=== PATIENT | female | born 1990 | race Caucasian/White ===

== ENCOUNTER 2018-12-12 10:00 | Inpatient (IN) | payer MEDICAID ==
[~2018-12-12] VITALS: Ht 157.5 cm; Wt 77.1 kg
[~2018-12-12 10:00] MED LIST: PREN-385 PO
[2018-12-19] MEDS ORDERED: LACTATED RINGERS 1,000 ML IV SCH (07:25)
[2018-12-19 07:59] LABS: BASOPHILS % (AUTO) 0.4 % (0.0-2.0); EOSINOPHILS # (AUTO) 0.1 K/uL (0-0.4); EOSINOPHILS % (AUTO) 1.1 % (0.0-4.0); HEMATOCRIT 37.9 % (36-48); HEMOGLOBIN 12.5 g/dL (12.0-16.0); MEAN CORPUSCULAR HEMOGLOBIN 25 pg (27-31); MEAN CORPUSCULAR HGB CONC 33 g/dL (33-37); MEAN CORPUSCULAR VOLUME 75.6 fL (80-94); MONOCYTES # (AUTO) 0.7 K/uL (0.8-1.0); MONOCYTES % (AUTO) 6.6 % (1.7-9.3); NEUTROPHILS # (AUTO) 6.8 K/uL (1.8-7.7); NEUTROPHILS % (AUTO) 63.9 % (42.2-75.2); PLATELET COUNT (AUTO) 308 K/uL (140-450); RED BLOOD CELL COUNT(AUTO) 5.01 MIL/uL (4.20-5.40); RED CELL DISTRIBUTION WIDTH 15.2 % (11.6-13.7); WHITE BLOOD COUNT (AUTO) 10.6 K/uL (4.8-10.8)
[2018-12-19 08:09] LABS: BILIRUBIN,URINE NEGATIVE (NEGATIVE); BLOOD, URINE TRACE-I (NEGATIVE); COLOR,URINE YELLOW (YELLOW); LEUKOCYTE ESTERASE ,URINE 1+ (NEGATIVE); NITRITE, URINE NEGATIVE (NEGATIVE); PH,URINE 7.5 (5.0-9.0); UGLUCOSE NEGATIVE (NEGATIVE)
[2018-12-19 08:36] LABS: APPEARANCE,URINE SL HAZY (CLEAR)
[2018-12-19 08:39] LABS: RBC,URINE 0-5 /HPF (0-5)
--- NOTE | 2018-12-19 09:19 | NUR ---
PATIENT HAS BEEN SCREENED AND CATEGORIZED LOW NUTRITION RISK. PATIENT WILL BE SEEN WITHIN 7 DAYS OF ADMISSION. 12/25/[address]
[2018-12-19 09:34] VITALS: BP 117/73
[2018-12-19] MEDS ORDERED: ONDANSETRON 4 MG/2 ML VIAL ONE (10:04)
[2018-12-19 10:09] LABS: ANION GAP 18.3 (8-16); CARBON DIOXIDE 20.1 mmol/L (21-32); CREATININE 0.5 mg/dL (0.6-1.3); POTASSIUM 4.4 mmol/L (3.5-5.1)
[2018-12-19 10:10] LABS: ALBUMIN 2.6 g/dL (3.4-5.0); TOTAL BILIRUBIN 0.3 mg/dL (0.0-1.0)
[2018-12-19] MEDS ORDERED: MORPHINE PRES FREE 10 MG/10 ML AMP IV ONE (10:18)
[2018-12-19] MEDS ORDERED: diphenhydrAMINE 50 MG/ML VIAL IVP PRN (10:30)
[2018-12-19] MEDS ORDERED: ONDANSETRON 4 MG/2 ML VIAL IVP PRN (10:30)
[2018-12-19] MEDS ORDERED: KETOROLAC 30 MG/ML VIAL IVP PRN (10:30)
[2018-12-19] MEDS ORDERED: NALOXONE 0.4 MG/ML VIAL IVP PRN ×2 (10:30)
[2018-12-19] MEDS ORDERED: OXYTOCIN 20 UNITS in LACTATED RINGERS 1,000 ML IV SCH (12:54)
[2018-12-19] MEDS ORDERED: MEASLES, MUMPS, AND RUBELLA 1 VIAL SQVAC PRN (12:55)
[2018-12-19] MEDS ORDERED: HYDROmorphone 1 MG/ML AMP IVP PRN ×2 (12:55)
[2018-12-19] MEDS ORDERED: ceFAZolin 1,000 MG VIAL ONE (20:32)
[2018-12-20] MEDS ORDERED: OXYTOCIN 20 UNITS/LR PREMIX 1,000 ML IV ONE (00:42)
[2018-12-20] MEDS ORDERED: ceFAZolin 1,000 MG VIAL ONE (04:51)
[2018-12-20] MEDS: KETOROLAC 30 MG/ML VIAL IVP PRN ×2 (10:00→20:14)
[2018-12-20 11:35] LABS: BASOPHILS % (AUTO) 0.4 % (0.0-2.0); EOSINOPHILS # (AUTO) 0.1 K/uL (0-0.4); EOSINOPHILS % (AUTO) 1.1 % (0.0-4.0); HEMATOCRIT 33.5 % (36-48); HEMOGLOBIN 10.9 g/dL (12.0-16.0); LYMPHOCYTES # (AUTO) 2.1 K/uL (2.5-16.5); LYMPHOCYTES % (AUTO) 16.6 % (20.5-51.1); MEAN CORPUSCULAR HEMOGLOBIN 24 pg (27-31); MEAN CORPUSCULAR HGB CONC 33 g/dL (33-37); MEAN CORPUSCULAR VOLUME 74.9 fL (80-94); MONOCYTES # (AUTO) 0.8 K/uL (0.8-1.0); MONOCYTES % (AUTO) 6.1 % (1.7-9.3); NEUTROPHILS # (AUTO) 9.6 K/uL (1.8-7.7); NEUTROPHILS % (AUTO) 75.8 % (42.2-75.2); PLATELET COUNT (AUTO) 275 K/uL (140-450); RED BLOOD CELL COUNT(AUTO) 4.48 MIL/uL (4.20-5.40); RED CELL DISTRIBUTION WIDTH 15.1 % (11.6-13.7); WHITE BLOOD COUNT (AUTO) 12.6 K/uL (4.8-10.8)
[2018-12-20] MEDS ORDERED: ACETAMINOPHEN 325 MG TAB PO PRN (22:00)
[2018-12-21] MEDS ORDERED: SODIUM PHOSPHATE 118 ML ENEM RC PRN (08:00)
[2018-12-21] MEDS ORDERED: IBUPROFEN 600 MG TAB PO PRN (08:00)
[2018-12-21] MEDS: BISACODYL 5 MG TABEC PO SCH (08:54)
[2018-12-21] MEDS: SIMETHICONE 80 MG TAB.CHEW PO SCH ×3 (08:54→17:19)
[2018-12-21] MEDS: DOCUSATE SODIUM 100 MG GELCAP PO SCH (08:55)
[2018-12-22] MEDS: SIMETHICONE 80 MG TAB.CHEW PO SCH ×3 (08:46→18:02)
[2018-12-22] MEDS: BISACODYL 5 MG TABEC PO SCH (08:46)
[2018-12-22] MEDS: DOCUSATE SODIUM 100 MG GELCAP PO SCH (08:46)
[2018-12-23] MEDS: BISACODYL 5 MG TABEC PO SCH (08:31)
[2018-12-23] MEDS: SIMETHICONE 80 MG TAB.CHEW PO SCH (08:32)
[2018-12-23] MEDS: DOCUSATE SODIUM 100 MG GELCAP PO SCH (08:32)
[2018-12-23] MEDS ORDERED: MIDAZOLAM 2 MG/2 ML VIAL ONE ×2 (11:02)
[2018-12-23] MEDS ORDERED: fentaNYL 0.05 MG/ML VIAL ONE (11:02)
[2018-12-23] MEDS ORDERED: diphenhydrAMINE 50 MG/ML VIAL ONE (11:03)
== END 2018-12-23 15:30 | disposition home or self-care (01) | DRG 540 ==
LOC: MLD 12-19 07:17 → MFCC 12-19 14:15
PROVIDERS: ADMIT Obstetrics & Gynecology; ATTEND Obstetrics & Gynecology
PROC: 0UB10ZZ Excision of Left Ovary, Open Approach (ICD-10-PCS; 2018-12-19)
PROC: 10D00Z1 Extraction of Products of Conception, Low, Open Approach (ICD-10-PCS; principal; 2018-12-19 10:00)
DX: O32.0XX0 Maternal care for unstable lie, not applicable or unspecified (principal); O24.429 Gestational diabetes mellitus in childbirth, unspecified control; N83.202 Unspecified ovarian cyst, left side; O34.211 Maternal care for low transverse scar from previous cesarean delivery; O34.83 Maternal care for other abnormalities of pelvic organs, third trimester; O69.81X0 Labor and delivery complicated by cord around neck, without compression, not applicable or unspecified; Z37.0 Single live birth; Z3A.39 39 weeks gestation of pregnancy
CPT/HCPCS: 36415; 51702; 80053; 81001; 85025; 86592; 86886; 86900; 86901; 87086; 88305; 88307; J0690; J1200; J1885; J2250; J2270; J2405; J2590; J3010; J7060; J7120

== ENCOUNTER 2018-12-12 13:56 | Observation (INO) | payer MEDICAID ==
[~2018-12-12] VITALS: Ht 157.5 cm; Wt 77.1 kg
[2018-12-12 14:40] VITALS: BP 111/76
== END 2018-12-12 17:00 | disposition home or self-care (01) ==
LOC: MLD 13:56
PROVIDERS: ADMIT Obstetrics & Gynecology; ATTEND Obstetrics & Gynecology
DX: O26.899 Other specified pregnancy related conditions, unspecified trimester (principal); R10.9 Unspecified abdominal pain; Z3A.00 Weeks of gestation of pregnancy not specified
CPT/HCPCS: 59025; 76815; G0378; Q0092